=== PATIENT | male | born 1985 | race Caucasian/White ===

== ENCOUNTER → 2024-01-09 | Outpatient (CLI) | payer SELFPAY ==
[2024-01-16 15:09] LABS: Testosterone, % Free 4.35 % (1.50-4.20); Testosterone, Total 131 ng/dL (264-916)
== END | disposition home or self-care (01) ==
LOC: MTLAB 07:41
PROVIDERS: Referring Provider Internal Medicine Endocrinology, Diabetes & Metabolism; Visit Provider Internal Medicine Endocrinology, Diabetes & Metabolism
DX: E29.1 Testicular hypofunction (principal)
CPT/HCPCS: 36415; 84402; 84403

== ENCOUNTER → 2024-02-26 | Outpatient (CLI) | payer SELFPAY ==
[2024-02-26 12:42] LABS: Vitamin D,25 Hydroxy 18.4 ng/mL
[2024-03-06 12:10] LABS: Testosterone, % Free 5.73 % (1.50-4.20); Testosterone, Free 15.41 ng/dL (5.00-21.00); Testosterone, Total 269 ng/dL (264-916)
== END | disposition home or self-care (01) ==
PROVIDERS: Referring Provider Internal Medicine Endocrinology, Diabetes & Metabolism; Visit Provider Internal Medicine Endocrinology, Diabetes & Metabolism
DX: E55.9 Vitamin D deficiency, unspecified (principal)
CPT/HCPCS: 36415; 82306; 84402; 84403